=== PATIENT | female | born 1955 | race Native Hawaiian/Other Pacific Islander ===

== ENCOUNTER 2020-06-13 14:53 | Outpatient (CLI) | payer OTHER | END 2020-06-13 23:26 | disposition home or self-care (01) | LOC: CT 14:53 | PROVIDERS: ATTEND Internal Medicine Sleep Medicine | DX: Z92.29 Personal history of other drug therapy (principal); J44.9 Chronic obstructive pulmonary disease, unspecified; Z87.891 Personal history of nicotine dependence | CPT/HCPCS: G0297-TC ==

== ENCOUNTER 2021-05-03 08:59 | Outpatient (CLI) | payer OTHER | END 2021-05-03 18:51 | disposition home or self-care (01) | LOC: CT 08:59 | PROVIDERS: ATTEND Nurse Practitioner Family | DX: F17.210 Nicotine dependence, cigarettes, uncomplicated (principal) ==